=== PATIENT | female | born 1985 | race Caucasian/White ===

== ENCOUNTER 2018-01-14 07:16 | Emergency (ER) | payer BC, OTHER ==
--- NOTE | 2018-01-14 08:05 | ER ---
Nurse's Notes [facility] Name: Socorro Cook Age: 32 yrs Sex: Female : 1985 Arrival Date: 01/14/2018 Time: 07:20 Bed 16 Private MD: out of town, doctor Diagnosis: Right facial swelling;facial cellulitis Presentation: 01/14 07:32 Presenting complaint: Patient states: i have upper tooth cavities for weeks and i saw a dentist last Friday, placed me on antibiotics- clindamycin, due to swelling on R cheek and its getting worse, the swelling gets to my R eye; denies fever and chills, reports nausea;. Transition of care: patient was not received from another setting of care. Onset of symptoms was January 14, 2018. Initial Sepsis Screen: Does the patient meet any 2 criteria? Does the patient have a suspected source of infection? Yes:. Care prior to arrival: None. 07:32 Method Of Arrival: Ambulatory 07:32 Acuity: GEORGE 3 Triage Assessment: 07:36 General: Appears in no apparent distress. uncomfortable, Behavior is calm, cooperative, hj appropriate for age. Pain: Complains of pain in right cheek. 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 - Social history:: Smoking status: Patient/guardian denies using tobacco, Patient/guardian denies using alcohol. Screenin:36 Abuse screen: Denies threats or abuse. Denies injuries from another. Nutritional hj screening: No deficits noted. Tuberculosis screening: No symptoms or risk factors identified. Fall Risk None identified. Assessment: 07:38 General: Appears in no apparent distress. uncomfortable, Behavior is calm, cooperative, hj appropriate for age. Pain: Complains of pain in right cheek Pain currently is 7 out of 10 on a pain scale. Neuro: Level of Consciousness is awake, alert, obeys commands, Oriented to person, place, time, situation, Appropriate for age. Cardiovascular: Capillary refill < 3 seconds Patient's skin is warm and dry. Respiratory: Airway is patent Respiratory effort is even, unlabored, Respiratory pattern is regular, symmetrical. GI: No signs and/or symptoms were reported involving the gastrointestinal system. : No signs and/or symptoms were reported regarding the genitourinary system. EENT: No signs and/or symptoms were reported regarding the EENT system. EENT: Derm: No signs and/or symptoms reported regarding the dermatologic system. Musculoskeletal: Vital Signs: 07:37 BP 137 / 91; Pulse 86; Resp 18; Temp 97.6(TE); Pulse Ox 100% on R/A; Weight 104.33 kg; hj Height 5 ft. 6 in. (167.64 cm); Pain 7/10; 09:18 BP 135 / 89; Pulse 85; Resp 18; Pulse Ox 100% on R/A; hj 07:37 Body Mass Index 37.12 (104.33 kg, 167.64 cm) hj ED Course: 07:20 Patient arrived in ED. mr 07:20 out of town, doctor is Private Physician. mr 07:31 Hilton Laura, GAGE is Primary Nurse. hj 07:35 Triage completed. hj 07:35 Cesario Bird MD is Attending Physician. ps1 07:37 Arm band placed on right wrist. hj 07:37 Patient has correct armband on for positive identification. Bed in low position. Call hj light in reach. Side rails up X 1. Adult w/ patient. 07:58 Inserted saline lock: 22 gauge in left antecubital area, using aseptic technique. Blood hj collected. 09:17 No provider procedures requiring assistance completed. IV discontinued, intact, hj bleeding controlled, No redness/swelling at site. Pressure dressing applied. Administered Medications: 08:03 Drug: NS 0.9% 1000 ml Route: IV; Rate: 1 bolus; Site: left antecubital; hj 09:02 Follow up: IV Status: Completed infusion hj 08:03 Drug: Decadron - Dexamethasone 10 mg Route: IVP; Site: left antecubital; hj 09:02 Follow up: Response: No adverse reaction hj 09:02 Drug: Rocephin - (cefTRIAXone) 1 grams Route: IVPB; Infused Over: 30 mins; Site: left hj antecubital; 09:02 Follow up: IV Status: Completed infusion hj Outcome: 08:04 Discharge ordered by . ps1 09:18 Discharged to home ambulatory. hj 09:18 Condition: stable 09:18 Discharge instructions given to patient, Instructed on discharge instructions, follow up and referral plans. the need for admit, Demonstrated understanding of instructions, follow-up care, medications, Prescriptions given X 2. 09:20 Patient left the ED. betty Signatures: Oumou Solorzano Henry RN RN Cesario Mirza MD MD ps1 Corrections: (The following items were deleted from the chart) 07:35 07:31 Presenting complaint: betty hernández
--- NOTE | 2018-01-14 08:05 | EDPHYS ---
Physician Documentation [facility] Name: Socorro Cook Age: 32 yrs Sex: Female : 1985 Arrival Date: 01/14/2018 Time: 07:20 Bed 16 Private MD: out of town, doctor ED Physician Cesario Bird HPI: 01/14 07:58 This 32 yrs old Female presents to ER via Ambulatory with complaints of Mouth ps1 Swelling. 07:58 The patient presents with pain and swelling in the right maxillary/facial region s/p ps1 filled dental susan. Called dentist and on clindamycin x 2 days. Swelling is worse, pain rated as moderate. No FND. No extension into eye or pain with eye movements. No palpable abscess. No fever. 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 - Social history:: Smoking status: Patient/guardian denies using tobacco, Patient/guardian denies using alcohol. ROS: 07:58 Constitutional: Negative for fever, chills, and weight loss, Eyes: Negative for injury, ps1 pain, redness, and discharge. 07:58 Cardiovascular: Negative for chest pain, palpitations, and edema, Respiratory: Negative for shortness of breath, cough, wheezing, and pleuritic chest pain, Abdomen/GI: Negative for abdominal pain, nausea, vomiting, diarrhea, and constipation, Back: Negative for injury and pain, MS/Extremity: Negative for injury and deformity, Skin: Negative for injury, rash, and discoloration, Neuro: Negative for headache, weakness, numbness, tingling, and seizure, Psych: Negative for depression, anxiety, suicide ideation, homicidal ideation, and hallucinations. 07:58 ENT: Positive for Teeth pain facial swelling. Exam: 07:58 Constitutional: This is a well developed, well nourished patient who is awake, alert, ps1 and in no acute distress. 07:58 ENT: Nares patent. No nasal discharge, no septal abnormalities noted. Tympanic membranes are normal and external auditory canals are clear. Oropharynx with no redness, swelling, or masses, exudates, or evidence of obstruction, uvula midline. Mucous membranes moist. Neck: Trachea midline, no thyromegaly or masses palpated, and no cervical lymphadenopathy. Supple, full range of motion without nuchal rigidity, or vertebral point tenderness. No Meningismus. Chest/axilla: Normal chest wall appearance and motion. Nontender with no deformity. No lesions are appreciated. Cardiovascular: Regular rate and rhythm. No gallops, murmurs, or rubs. Normal PMI, no JVD. No pulse deficits. Respiratory: Lungs have equal breath sounds bilaterally, clear to auscultation and percussion. No rales, rhonchi or wheezes noted. No increased work of breathing, no retractions or nasal flaring. Abdomen/GI: Soft, non-tender, with normal bowel sounds. No distension or tympany. No guarding or rebound. No evidence of tenderness throughout. MS/ Extremity: Pulses equal, no cyanosis. Neurovascular intact. Full, normal range of motion. Neuro: Awake and alert, GCS 15, oriented to person, place, time, and situation. Cranial nerves II-XII grossly intact. Sensory grossly intact. Psych: Awake, alert, with orientation to person, place and time. Behavior, mood, and affect are within normal limits. 07:58 Head/face: Noted is swelling, that is mild, of the right cheek. Vital Signs: 07:37 BP 137 / 91; Pulse 86; Resp 18; Temp 97.6(TE); Pulse Ox 100% on R/A; Weight 104.33 kg; Height 5 ft. 6 in. (167.64 cm); Pain 7/10; 09:18 BP 135 / 89; Pulse 85; Resp 18; Pulse Ox 100% on R/A; hj 07:37 Body Mass Index 37.12 (104.33 kg, 167.64 cm) MDM: 07:58 Data reviewed: vital signs, nurses notes. ED course: pt already on clindamycin. Will ps1 give decadron and x1 rocephin. continue clindamycin and follow up with dentist. 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 Stable for discharge. . 08:04 Patient medically screened. ps1 Administered Medications: 08:03 Drug: NS 0.9% 1000 ml Route: IV; Rate: 1 bolus; Site: left antecubital; 09:02 Follow up: IV Status: Completed infusion hj 08:03 Drug: Decadron - Dexamethasone 10 mg Route: IVP; Site: left antecubital; 09: Follow up: Response: No adverse reaction 09: Drug: Rocephin - (cefTRIAXone) 1 grams Route: IVPB; Infused Over: 30 mins; Site: left hj antecubital; 09:02 Follow up: IV Status: Completed infusion Disposition: 01/14/18 08:04 Discharged to Home. Impression: Right facial swelling, facial cellulitis. - Condition is Stable. - Discharge Instructions: Cellulitis. - Prescriptions for Anaprox DS 550 mg Oral Tablet - take 1 tablet by ORAL route every 12 hours As needed; 20 tablet. Medrol (Landry) 4 mg Oral Tablets, Dose Pack - take 1 tablet by ORAL route as directed - follow package instructions; 1 packet. - Work release form, Medication Reconciliation Form, Thank You Letter, Antibiotic Education, Prescription Opioid Use form. - Follow up: Private Physician; When: As needed; Reason: Recheck today's complaints, Continuance of care, Re-evaluation by your physician. Follow up: Emergency Department; When: As needed; Reason: Fever > 102 F, Trouble breathing, Worsening of condition. - Problem is an ongoing problem. - Symptoms have worsened. Signatures: Hilton Laura RN RN Cesario Mirza MD MD ps1
[2018-01-14] MEDS ORDERED: DEXAMETHASONE 10 MG/ML VIAL ONE (08:06)
[2018-01-14] MEDS ORDERED: NA CHLORIDE 0.9% 1,000 ML ONE (08:07)
[2018-01-14] MEDS ORDERED: CEFTRIAXONE/SWI 1gm 1 GM/10 ML SYR ONE (08:56)
[2018-01-14 09:26] VITALS: TEMP 97.6; O2SAT 100
[2018-01-14 09:27] VITALS: BP 135/89
== END 2018-01-14 09:20 | disposition home or self-care (01) ==
LOC: ER 07:16
DX: L03.211 Cellulitis of face (principal); Z88.5 Allergy status to narcotic agent
CPT/HCPCS: 96361; 96374; 96375; 99284; J0696; J1100; J7030

== ENCOUNTER 2018-04-06 04:39 | Emergency (ER) | payer BC ==
[2018-04-06 05:40] LABS: Absolute Lymphocytes (CBC) 2.5 K/uL (0.7-4.9); Absolute Monocytes 0.5 K/uL (0.1-1.3); Absolute Neutrophil 5.3 K/uL (1.8-8.0); Basophils % 0.4 % (0-1.3); Eosinophils % 1.3 % (0-4.4); Hematocrit 39.3 % (36.0-45.0); Lymphocytes % 29.7 % (15.3-44.8); MCH 28.8 pg (27.0-35.0); MCV 83.7 fL (80-100); MPV 9.8 fL (7.6-11.3); Monocytes % 5.7 % (3.3-12.3)
[2018-04-06] MEDS ORDERED: NA CHLORIDE 0.9% 1,000 ML ONE (05:44)
[2018-04-06 06:00] LABS: ALT/SGPT 31 U/L (12-78); AST/SGOT 18 U/L (15-37); Albumin 3.6 g/dL (3.4-5.0); Alkaline Phosphatase 40 U/L (45-117); BUN Blood Urea Nitrogen 17 mg/dL (7-18); Bicarbonate 24 mmol/L (21-32); Bilirubin Direct 0.1 mg/dL (0-0.2); Bilirubin Total 0.7 mg/dL (0.2-1.0); Glucose Level 158 mg/dL (74-106); Lipase 137 U/L (73-393); Protein, Total 7.5 g/dL (6.4-8.2); Sodium Level 139 mmol/L (136-145)
[2018-04-06] MEDS ORDERED: KETOROLAC 30 MG/ML INJ ONE (06:52)
--- NOTE | 2018-04-06 07:13 | ER ---
Nurse's Notes [facility] Name: Socorro Cook Age: 32 yrs Sex: Female : 1985 Arrival Date: 04/06/2018 Time: 04:42 Bed 8 Private MD: Diagnosis: Abdominal tenderness;Fatty (change of) liver, not elsewhere classified Presentation: 04/06 04:54 Presenting complaint: Patient states: that for the past 2 days she has been having fc right side/flank/back pain along with nausea. Denies any urinary problems. No diarrhea. Last BM was 04/05/18. Transition of care: patient was not received from another setting of care. Onset of symptoms was April 04, 2018. Risk Assessment: Do you want to hurt yourself or someone else? Patient reports no desire to harm self or others. Initial Sepsis Screen: Does the patient meet any 2 criteria? No. Patient's initial sepsis screen is negative. Does the patient have a suspected source of infection? No. Patient's initial sepsis screen is negative. Care prior to arrival: None. 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 - Social history:: Smoking status: Patient/guardian denies using tobacco. - Ebola Screening: : Patient negative for fever greater than or equal to 101.5 degrees Fahrenheit, and additional compatible Ebola Virus Disease symptoms Patient denies exposure to infectious person Patient denies travel to an Ebola-affected area in the 21 days before illness onset. - Family history:: not pertinent. Screenin:57 Abuse screen: Denies threats or abuse. Nutritional screening: No deficits noted. fc Tuberculosis screening: No symptoms or risk factors identified. Fall Risk None identified. Assessment: 05:02 General: Appears in no apparent distress. comfortable, Behavior is calm, cooperative, aa1 appropriate for age. Pain: Complains of pain in posterior aspect of right lateral abdomen, anterior aspect of right lateral abdomen and right lower quadrant Pain began 1 day ago. Aggravated by breathing. Neuro: Level of Consciousness is awake, alert, obeys commands, Oriented to person, place, time, situation, Moves all extremities. Full function Gait is steady, Speech is normal. Cardiovascular: Heart tones S1 S2 present Rhythm is regular. Respiratory: Airway is patent Respiratory effort is even, unlabored, Respiratory pattern is regular, symmetrical. GI: Abdomen is obese, Bowel sounds present X 4 quads. Abd is soft X 4 quads Reports lower abdominal pain, nausea. : No signs and/or symptoms were reported regarding the genitourinary system. EENT: No signs and/or symptoms were reported regarding the EENT system. Derm: Skin is intact, is healthy with good turgor, Skin is pink, warm \T\ dry. Musculoskeletal: Circulation, motion, and sensation intact. Capillary refill < 3 seconds. 05:38 Reassessment: Patient appears in no apparent distress at this time. Patient and/or aa1 family updated on plan of care and expected duration. Pain level reassessed. Patient is alert, oriented x 3, equal unlabored respirations, skin warm/dry/pink. Awaiting lab and CT results. 07:04 Reassessment: Patient appears in no apparent distress at this time. Patient and/or aa1 family updated on plan of care and expected duration. Pain level reassessed. Patient is alert, oriented x 3, equal unlabored respirations, skin warm/dry/pink. Awaiting u/s. Vital Signs: 04:56 BP 146 / 78; Pulse 75; Resp 18; Temp 98.3(O); Pulse Ox 97% on R/A; Weight 104.33 kg fc (R); Height 5 ft. 6 in. (167.64 cm) (R); Pain 7/10; 05:39 BP 128 / 69; Pulse 75; Resp 16; Pulse Ox 99% on R/A; aa1 06:18 BP 117 / 79; Pulse 73; Resp 16; Pulse Ox 98% on R/A; aa1 07:21 BP 134 / 77; Pulse 79; Resp 16; Pulse Ox 99% on R/A; hb 04:56 Body Mass Index 37.12 (104.33 kg, 167.64 cm) ED Course: 04:42 Patient arrived in ED. al2 04:53 Justino Ji MD is Attending Physician. jose 04:55 Triage completed. fc 04:56 Arm band placed on Patient placed in an exam room, on a stretcher. fc 04:57 Patient has correct armband on for positive identification. Bed in low position. Call light in reach. Pulse ox on. NIBP on. 05:01 Laureen Dailey, RN is Primary Nurse. aa1 05:02 Initial lab(s) drawn, by me, sent to lab. Inserted saline lock: 20 gauge in right aa1 forearm, using aseptic technique. Blood collected. 05:[address] via wheelchair. kw1 05:18 CT Stone Protocol In Process Unspecified. EDMS 05:18 CT completed. Patient tolerated procedure well. Patient moved back from CT. kw1 06:43 Patient taken to ultrasound. olaf 07:06 Report given to Kallie Antonio RN. aa1 07:17 US Abdomen Limited In Process Unspecified. EDMS 07:23 No provider procedures requiring assistance completed. IV discontinued, intact, hb bleeding controlled, No redness/swelling at site. Pressure dressing applied. Administered Medications: 05:44 Drug: NS 0.9% 1000 ml Route: IV; Rate: 1 bolus; Site: right forearm; aa1 06:51 Drug: TORadol 30 mg Route: IVP; Site: right forearm; aa1 Outcome: 07:12 Discharge ordered by . jose 07:23 Discharged to home ambulatory. hb 07:23 Condition: stable 07:23 Discharge instructions given to patient, Instructed on discharge instructions, follow up and referral plans. medication usage, Demonstrated understanding of instructions, follow-up care, medications, Prescriptions given X 2. 07:24 Patient left the ED. hb Signatures: Dispatcher [employer] EDMS Laureen Dailey, RN RN aa1 Justino Ji MD MD cha Chretien, Felicia, RN RN fc Dupre, Jacques jd Baxter, Heather, RN RN Tami Vivas kw1 Steffi Marie2
--- NOTE | 2018-04-06 07:13 | EDPHYS ---
Physician Documentation [facility] Name: Socorro Cook Age: 32 yrs Sex: Female : 1985 Arrival Date: 04/06/2018 Time: 04:42 Bed 8 Private MD: ED Physician Justino Ji HPI: 04/06 05:12 This 32 yrs old Female presents to ER via Ambulatory with complaints of Flank jose Pain. 05:12 The patient complains of pain in the right mid back and right low back. The pain jose radiates to the right mid back and right low back. Onset: The symptoms/episode began/occurred 2 day(s) ago. Modifying factors: The symptoms are alleviated by nothing. Associated signs and symptoms: Pertinent positives: nausea. Severity of pain: At its worst the pain was moderate. The patient has not experienced similar symptoms in the past. 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 - Social history:: Smoking status: Patient/guardian denies using tobacco. - Ebola Screening: : Patient negative for fever greater than or equal to 101.5 degrees Fahrenheit, and additional compatible Ebola Virus Disease symptoms Patient denies exposure to infectious person Patient denies travel to an Ebola-affected area in the 21 days before illness onset. - Family history:: not pertinent. ROS: 05:12 Constitutional: Negative for fever, chills, and weight loss, Eyes: Negative for injury, jose pain, redness, and discharge, ENT: Negative for injury, pain, and discharge, Neck: Negative for injury, pain, and swelling, Cardiovascular: Negative for chest pain, palpitations, and edema, Respiratory: Negative for shortness of breath, cough, wheezing, and pleuritic chest pain, : Negative for injury, bleeding, discharge, and swelling, MS/Extremity: Negative for injury and deformity, Skin: Negative for injury, rash, and discoloration, Neuro: Negative for headache, weakness, numbness, tingling, and seizure, Psych: Negative for depression, anxiety, suicide ideation, homicidal ideation, and hallucinations, Allergy/Immunology: Negative for hives, rash, and allergies, Endocrine: Negative for neck swelling, polydipsia, polyuria, polyphagia, and marked weight changes, Hematologic/Lymphatic: Negative for swollen nodes, abnormal bleeding, and unusual bruising. 05:12 Abdomen/GI: Positive for abdominal pain, nausea. 05:12 Back: Positive for decreased range of motion, pain at rest, of the right mid back and right low back. Exam: 05:12 Constitutional: This is a well developed, well nourished patient who is awake, alert, jose and in no acute distress. Head/Face: Normocephalic, atraumatic. Eyes: Pupils equal round and reactive to light, extra-ocular motions intact. Lids and lashes normal. Conjunctiva and sclera are non-icteric and not injected. Cornea within normal limits. Periorbital areas with no swelling, redness, or edema. ENT: Nares patent. No nasal discharge, no septal abnormalities noted. Tympanic membranes are normal and external auditory canals are clear. Oropharynx with no redness, swelling, or masses, exudates, or evidence of obstruction, uvula midline. Mucous membranes moist. Neck: Trachea midline, no thyromegaly or masses palpated, and no cervical lymphadenopathy. Supple, full range of motion without nuchal rigidity, or vertebral point tenderness. No Meningismus. Chest/axilla: Normal chest wall appearance and motion. Nontender with no deformity. No lesions are appreciated. Cardiovascular: Regular rate and rhythm with a normal S1 and S2. No gallops, murmurs, or rubs. Normal PMI, no JVD. No pulse deficits. Respiratory: Lungs have equal breath sounds bilaterally, clear to auscultation and percussion. No rales, rhonchi or wheezes noted. No increased work of breathing, no retractions or nasal flaring. Skin: Warm, dry with normal turgor. Normal color with no rashes, no lesions, and no evidence of cellulitis. MS/ Extremity: Pulses equal, no cyanosis. Neurovascular intact. Full, normal range of motion. Neuro: Awake and alert, GCS 15, oriented to person, place, time, and situation. Cranial nerves II-XII grossly intact. Motor strength 5/5 in all extremities. Sensory grossly intact. Cerebellar exam normal. Normal gait. Psych: Awake, alert, with orientation to person, place and time. Behavior, mood, and affect are within normal limits. 05:12 Abdomen/GI: Inspection: abdomen appears normal, Bowel sounds: normal, Palpation: mild abdominal tenderness, Liver: no appreciated palpable abnormalities, Hernia: not appreciated. 06:29 Musculoskeletal/extremity: DVT Exam: No signs of deep vein thrombosis. no pain, no jose swelling, no tenderness, negative Homans' sign noted on exam, no appreciated bluish discoloration, no erythema, no increased warmth. 06:31 Musculoskeletal/extremity: ROM: no acute changes, intact in all extremities, jose Circulation is intact in all extremities. Pulses: are normal with no appreciated deficits, Sensation intact. Compartment Syndrome exam of affected extremity: is normal. Vital Signs: 04:56 BP 146 / 78; Pulse 75; Resp 18; Temp 98.3(O); Pulse Ox 97% on R/A; Weight 104.33 kg fc (R); Height 5 ft. 6 in. (167.64 cm) (R); Pain 7/10; 05:39 BP 128 / 69; Pulse 75; Resp 16; Pulse Ox 99% on R/A; aa1 06:18 BP 117 / 79; Pulse 73; Resp 16; Pulse Ox 98% on R/A; aa1 07:21 BP 134 / 77; Pulse 79; Resp 16; Pulse Ox 99% on R/A; hb 04:56 Body Mass Index 37.12 (104.33 kg, 167.64 cm) MDM: 04:53 Patient medically screened. [facility] 05:17 Data reviewed: vital signs, nurses notes, lab test result(s), radiologic studies, plain jose films. 04/06 04:54 Order name: Basic Metabolic Panel; Complete Time: 07:08 [facility] 04/06 04:54 Order name: CBC with Diff; Complete Time: 07: [facility] 04/06 04:54 Order name: Creatinine for Radiology; Complete Time: 07: [facility] 04/06 04:54 Order name: Hepatic Function; Complete Time: 07:08 [facility] 04/06 04:54 Order name: Lipase; Complete Time: 07:08 [facility] 04/06 04:54 Order name: Urine Microscopic Only [facility] 04/06 04:54 Order name: IV Saline Lock; Complete Time: 05:07 [facility] 04/06 04:54 Order name: Labs collected and sent; Complete Time: 05:07 [facility] 04/06 04:54 Order name: CT Stone Protocol [facility] 04/06 05:42 Order name: US Abdomen Limited [facility] 04/06 06:52 Order name: Urine Dipstick--Ancillary (enter results) [facility] 04/06 06:52 Order name: Urine --Ancillary (enter results) [facility] 04/06 04:54 Order name: Urine Dipstick-Ancillary (obtain specimen); Complete Time: 06:48 [facility] 04/06 04:54 Order name: Urine Test (obtain specimen); Complete Time: 06:48 [facility] Administered Medications: 05:44 Drug: NS 0.9% 1000 ml Route: IV; Rate: 1 bolus; Site: right forearm; aa1 06:51 Drug: TORadol 30 mg Route: IVP; Site: right forearm; aa1 Disposition: 04/06/18 07:12 Discharged to Home. Impression: Abdominal tenderness, Fatty (change of) liver, not elsewhere classified. - Condition is Stable. - Discharge Instructions: Abdominal Pain, Adult, Nausea and Vomiting, Abdominal Pain, Adult, [id number]. - Prescriptions for Bentyl 20 mg Oral Tablet - take 1 tablet by ORAL route every 6 hours As needed; 20 tablet. Pepcid 20 mg Oral Tablet - take 1 tablet by ORAL route every 12 hours for 10 days; 20 tablet. - Work release form, Medication Reconciliation Form, Thank You Letter, Antibiotic Education, Prescription Opioid Use form. - Follow up: Private Physician; When: 2 - 3 days; Reason: Recheck today's complaints, Continuance of care, Re-evaluation by your physician. - Problem is new. - Symptoms have improved. Signatures: Dispatcher [employer] EDMS Laureen Dailey RN RN aa1 Justino Ji MD MD cha Chretien, Felicia, RN RN fc Baxter, Heather, RN RN hb Corrections: (The following items were deleted from the chart) 07:24 07:12 04/06/2018 07:12 Discharged to Home. Impression: Abdominal tenderness; Fatty hb (change of) liver, not elsewhere classified. Condition is Stable. Forms are Medication Reconciliation Form, Thank You Letter, Antibiotic Education, Prescription Opioid Use. Follow up: Private Physician; When: 2 - 3 days; Reason: Recheck today's complaints, Continuance of care, Re-evaluation by your physician. Problem is new. Symptoms have improved. jose
[2018-04-06 07:28] VITALS: TEMP 98.3
[2018-04-06 07:31] LABS: Urine Blood 2+ (NEG); Urine Glucose NEGATIVE (NEG); Urine Protein NEGATIVE (NEG); Urine pH 5.5 (5.0-7.0)
[2018-04-06 07:32] VITALS: BP 134/77; O2SAT 99
--- NOTE | 2018-04-06 08:49 | RAD REPORT ---
EXAM DESCRIPTION: CT - Stone Protocol - 04/06/2018 6:46 am CLINICAL HISTORY: Abdominal pain. Right flank pain with nausea x2 days COMPARISON: 2012 TECHNIQUE: Computed axial tomography of the abdomen pelvis was obtained without oral or IV contrast. Lack of IV and oral contrast limits evaluation of solid organs, bowel, and vessels. Coronal reformat jamel images were obtained and reviewed. A preliminary report was generated by [employer] and reviewed prior to this dictation [address] scans are performed using dose optimization technique as appropriate and may include automated exposure control or mA/KV adjustment according to patient size. FINDINGS: A renal calculus is not seen. An ureteral calculus is not noted. A bladder calculus is not present. The liver is enlarged with diminished density compatible with fatty infiltration Spleen, pancreas and adrenals appear grossly normal There is no evidence of diverticulitis. The appendix appears normal A tampon is present within the vagina IMPRESSION: Negative for a genitourinary calculus Hepatomegaly with fatty infiltration
--- NOTE | 2018-04-06 09:11 | RAD REPORT ---
EXAM DESCRIPTION: US - Abdomen Exam Limited - 04/06/2018 7:17 am CLINICAL HISTORY: Abdominal pain. COMPARISON: 2016 FINDINGS: The gallbladder wall is not thickened. A gallstone is not seen. The biliary tree is normal caliber. IMPRESSION: Unremarkable gallbladder ultrasound.
[2018-04-06 10:17] LABS: Urine Bacteria <20 /HPF (<20); Urine RBC <5 /HPF (NONE SEEN)
[2018-04-06 10:18] LABS: Urine Culture Reflex Order NOT NEEDED
== END 2018-04-06 07:24 | disposition home or self-care (01) ==
LOC: ER 04:39
DX: K76.0 Fatty (change of) liver, not elsewhere classified (principal); F41.9 Anxiety disorder, unspecified; Z88.5 Allergy status to narcotic agent
CPT/HCPCS: 36415; 74176; 76377; 76705; 80048; 80076; 81003; 81015; 81025; 83690; 85025; 96374; 99284; J7030

== ENCOUNTER 2019-05-27 16:42 | Emergency (ER) | payer BC ==
[2019-05-27 17:17] LABS: Absolute Lymphocytes (CBC) 2.1 K/uL (0.7-4.9); Basophils % 0.5 % (0-1.3); Hematocrit 40.4 % (36.0-45.0); Lymphocytes % 26.1 % (15.3-44.8); MPV 9.7 fL (7.6-11.3); RBC Red Blood Cell Count 4.92 M/uL (3.86-4.86)
[2019-05-27 17:19] LABS: Urine Blood NEGATIVE (NEG); Urine Glucose NEGATIVE (NEG); Urine Protein NEGATIVE (NEG); Urine Specific Gravity 1.005 (1.005-1.030); Urine pH 6.5 (5.0-7.0)
[2019-05-27 17:34] LABS: Albumin 4.1 g/dL (3.4-5.0); Bilirubin Direct 0.1 mg/dL (0-0.2); Bilirubin Total 0.8 mg/dL (0.2-1.0); Potassium 4.1 mmol/L (3.5-5.1)
[2019-05-27] MEDS ORDERED: NA CHLORIDE 0.9% 1,000 ML ONE (18:11)
[2019-05-27] MEDS ORDERED: ONDANSETRON 4 MG/2 ML VIAL ONE (18:11)
[2019-05-27] MEDS ORDERED: MORPHINE 4 MG/ML SYR ONE (18:11)
[2019-05-27] MEDS ORDERED: FENTANYL CITR 100 MCG/2 ML ONE (18:40)
--- NOTE | 2019-05-27 19:21 | RAD REPORT ---
EXAM DESCRIPTION: CT - Stone Protocol - 05/27/2019 7:01 pm CLINICAL HISTORY: Back pain, right lower quadrant pain, dysuria COMPARISON: CT April 06, 2018 TECHNIQUE: Axial 5 mm thick images were obtained without oral or IV contrast. The [id number] span s the entirety of the system including uppermost abdomen and lung bases. All CT scans are performed using dose optimization technique as appropriate and may include automated exposure control or mA/KV adjustment according to patient size. FINDINGS: No hydronephrosis is present and no obstructing ureteral calculi. No suspicious renal mass es. Isodense masses and pyelonephritis are not excluded on a stone protocol CT scan. No urinary bladd er suspicious finding. No significant adrenal finding. Uterus is prominent stable. No ovarian or adne xal suspicious finding. Liver shows fatty infiltration. No focal liver lesion identified. Spleen and pancreas show no suspici ous findings. No gallbladder or biliary tree abnormality identified. No suspicious bowel findings. No acute GI finding. No hernia, mass or bulky lymphadenopathy noted. No free air, free fluid or inflammatory stranding. No significant bony abnormality. IMPRESSION: No hydronephrosis, obstructing calculus or acute finding. Isodense masses and pyelonephritis are not excluded on stone protocol technique. Fatty infiltration of the liver.
[2019-05-27] MEDS ORDERED: KETOROLAC 30 MG/ML INJ ONE (21:28)
--- NOTE | 2019-05-27 22:29 | ER ---
Nurse's Notes [facility] Name: Socorro Cook Age: 33 yrs Sex: Female : 1985 Arrival Date: 05/27/2019 Time: 16:45 Bed 4 Private MD: Diagnosis: Pain localized to upper abdomen-biliary colic Presentation: 05/27 16:49 Presenting complaint: Patient states: RLQ pain that started this morning, but now the aj1 pain radiates to her back. Also reports nausea. Denies V/D. Reports urinary frequency. Transition of care: patient was not received from another setting of care. Onset of symptoms was May 27, 2019. Risk Assessment: Do you want to hurt yourself or someone else? Patient reports no desire to harm self or others. Initial Sepsis Screen: Does the patient meet any 2 criteria? No. Patient's initial sepsis screen is negative. Does the patient have a suspected source of infection? No. Patient's initial sepsis screen is negative. Care prior to arrival: None. 16:49 Method Of Arrival: Ambulatory aj 16:49 Acuity: GEORGE 3 aj1 Triage Assessment: 16:50 General: Appears in no apparent distress. uncomfortable, Behavior is calm, cooperative, aj1 appropriate for age. Pain: Pain currently is 7 out of 10 on a pain scale. Neuro: Level of Consciousness is awake, alert, obeys commands. Cardiovascular: Patient's skin is warm and dry. Respiratory: Airway is patent Respiratory effort is even, unlabored, Respiratory pattern is regular, symmetrical. 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 - Social history:: Smoking status: Patient/guardian denies using tobacco. - Ebola Screening: : Patient denies travel to an Ebola-affected area in the 21 days before illness onset. Screenin:00 Abuse screen: Denies threats or abuse. Denies injuries from another. Nutritional sv screening: No deficits noted. Tuberculosis screening: No symptoms or risk factors identified. Fall Risk None identified. Assessment: 17:00 General: Appears in no apparent distress. uncomfortable, well developed, Behavior is sv calm, cooperative, appropriate for age. Pain: Complains of pain in posterior aspect of right lateral abdomen, anterior aspect of right lateral abdomen and right lower quadrant. Neuro: Level of Consciousness is awake, alert, obeys commands, Oriented to person, place, time, situation, Moves all extremities. Full function Gait is steady. Respiratory: Respiratory effort is even, unlabored, Respiratory pattern is regular, symmetrical. GI: Reports nausea. Derm: Skin is pink, warm \T\ dry. 18:19 Reassessment: Patient appears in no apparent distress at this time. No changes from sv previously documented assessment. Patient and/or family updated on plan of care and expected duration. Pain level reassessed. Patient is alert, oriented x 3, equal unlabored respirations, skin warm/dry/pink. 18:43 Reassessment: Patient appears in no apparent distress at this time. No changes from sv previously documented assessment. Patient and/or family updated on plan of care and expected duration. Pain level reassessed. Patient is alert, oriented x 3, equal unlabored respirations, skin warm/dry/pink. 19:30 Neuro: Level of Consciousness is awake, alert, obeys commands, Oriented to person, bb place, time, situation. Cardiovascular: Capillary refill < 3 seconds Patient's skin is warm and dry. Respiratory: Respiratory effort is even, unlabored, Respiratory pattern is regular. GI: Abdomen is non-distended, Reports upper abdominal pain. Derm: Skin is pink, warm \T\ dry. Musculoskeletal: Circulation, motion, and sensation intact. 21:09 Reassessment: Patient is alert, oriented x 3, equal unlabored respirations, skin bb warm/dry/pink. pt is awaiting results of CT scan Dr Pitts notified. 21:38 Reassessment: Patient is alert, oriented x 3, equal unlabored respirations, skin bb warm/dry/pink. IV site intact, patent, no erythema or edema noted, family at bedside awaiting disposition. 22:03 Reassessment: pt states pain has improved now 2/ Dr Pitts notified pt to be bb discharged home and follow-up with PCP. 22:27 Reassessment: Patient is alert, oriented x 3, equal unlabored respirations, skin bb warm/dry/pink. pt verbalized understanding of and agrees to plan of care discharge instructions given pt ambulated with steady gait to exit accompanied by spouse. Vital Signs: 16:50 BP 152 / 95; Pulse 80; Resp 18; Temp 97.5; Pulse Ox 97% on R/A; Weight 97.52 kg (R); aj1 Height 5 ft. 6 in. (167.64 cm) (R); 17:23 BP 127 / 81; Pulse 85; Resp 18; Pulse Ox 97% on R/A; jb1 18:19 BP 103 / 58; Pulse 84; Resp 16; Pulse Ox 99% ; sv 18:31 BP 119 / 80; Pulse 82; Resp 18; Pulse Ox 99% ; sv 19:30 BP 129 / 74; Pulse 69; Resp 16 S; Temp 98.1(O); Pulse Ox 98% on R/A; Pain 4/10; bb 21:08 BP 126 / 78; Pulse 70; Resp 16; Pulse Ox 97% on R/A; bb 22:03 BP 121 / 71; Pulse 80; Resp 16 S; Pulse Ox 99% on R/A; Pain 2/10; bb 22:28 Temp 98.1(O); bb 16:50 Body Mass Index 34.70 (97.52 kg, 167.64 cm) aj1 ED Course: 16:45 Patient arrived in ED. mr 16:50 Triage completed. aj1 16:50 Arm band placed on Patient placed in an exam room. aj1 16:53 Imtiaz Falk MD is Attending Physician. kdr 16:55 Augustina Estevez, GAGE is Primary Nurse. sv 17:00 Patient has correct armband on for positive identification. Bed in low position. Adult sv w/ patient. Door closed. Head of bed elevated. 17:00 Initial lab(s) drawn, by me, sent to lab. Inserted saline lock: 20 gauge in left sv antecubital area, using aseptic technique. Blood collected. Flushed left antecubital with 5 ml normal saline. 17:42 Admitting physician to see patient. hb 17:50 Radiology exam delayed due to test not completed at this time. vm2 18:18 Radiology exam delayed due to test not completed at this time. vm2 18:26 Test, Serum Sent. sv 18:26 Basic Metabolic Panel Sent. sv 18:26 CBC with Diff Sent. sv 18:26 Creatinine for Radiology Sent. sv 18:26 Hepatic Function Sent. sv 18:26 Lipase Sent. sv 18:[address] via wheelchair. sv 19:07 Report given to Linda ALMONTE. sv 19:09 Primary Nurse role handed off by Augustina Estevez RN sv 19:24 Attending Physician role handed off by Imtiaz Falk MD gs 19:24 Wei Pitts MD is Attending Physician. gs 19:30 IV is patent, is intact. Patient maintains SpO2 saturation greater than 95% on room air.bb 20:03 Linda Mcconnell RN is Primary Nurse. bb 22:19 Hilton Stiles MD is Referral Physician. gs 22:28 No provider procedures requiring assistance completed. IV discontinued, intact, bb bleeding controlled, No redness/swelling at site. Pressure dressing applied. Administered Medications: 18:18 Drug: Zofran 4 mg Route: IVP; Site: left antecubital; ss 18:43 Follow up: Response: No adverse reaction sv 18:20 Drug: NS 0.9% 1000 ml Route: IV; Rate: 1 bolus; Site: left antecubital; ss 19:30 Follow up: IV Status: Completed infusion; IV Intake: 1000ml bb 18:20 Drug: morphine 4 mg Route: IVP; Site: left antecubital; ss 18:43 Follow up: Response: No adverse reaction; No change in condition; RASS: Restless (+1) sv 18:43 Drug: fentaNYL (PF) 25 mcg {Note: RASS 1.} Route: IVP; Site: left antecubital; sv 20:05 Follow up: Response: No adverse reaction; Pain is decreased bb 21:37 Drug: TORadol - Ketorolac 15 mg Route: IVP; Site: left antecubital; bb 22:29 Follow up: Response: Pain is decreased bb Intake: 19:30 IV: 1000ml; Total: 1000ml. bb Outcome: 22:20 Discharge ordered by . gs 22:28 Discharged to home ambulatory, with family. bb 22:28 Condition: stable 22:28 Discharge instructions given to patient, Instructed on discharge instructions, follow up and referral plans. medication usage, Demonstrated understanding of instructions, follow-up care, medications. 22:29 Patient left the ED. bb Signatures: Crispin Dong jb1 Elisabeth Hernandez RN RN aj1 Verde, Stephanie, RN RN sv Rittger, Kevin, MD MD [facility] Adia Solorzano mr Enedina, GAGE Mckeon RN, Shelby, RN RN ss Baxter, Heather, RN RN Elana Chairez [facility] Wei Pitts MD MD
--- NOTE | 2019-05-27 22:32 | EDPHYS ---
Physician Documentation [facility] Name: Socorro Cook Age: 33 yrs Sex: Female : 1985 Arrival Date: 05/27/2019 Time: 16:45 Bed 4 Private MD: ED Physician Wei Pitts HPI: 05/27 18:54 This 33 yrs old Female presents to ER via Ambulatory with complaints of Flank kdr Pain. 18:54 The patient presents with abdominal pain right lower quadrant. Onset: The kdr symptoms/episode began/occurred this morning. The symptoms radiate to the right flank. Associated signs and symptoms: Pertinent positives: nausea and vomiting, Pertinent negatives: blood in stools, chest pain, constipation, diarrhea, dysuria, fever. The symptoms are described as achy, crampy, dull, sharp, shooting, waxing/waning. Modifying factors: The symptoms are alleviated by remaining still, Sitting. Severity of pain: At its worst the pain was moderate severe in the emergency department the pain is unchanged. The patient has not experienced similar symptoms in the past. The patient has not recently seen a physician. 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 - Social history:: Smoking status: Patient/guardian denies using tobacco. - Ebola Screening: : Patient denies travel to an Ebola-affected area in the 21 days before illness onset. ROS: 18:54 Constitutional: Negative for fever, chills, and weight loss, Eyes: Negative for injury, kdr pain, redness, and discharge, ENT: Negative for injury, pain, and discharge, Neck: Negative for injury, pain, and swelling, Cardiovascular: Negative for chest pain, palpitations, and edema, Respiratory: Negative for shortness of breath, cough, wheezing, and pleuritic chest pain, Back: Negative for injury and pain, : Negative for injury, bleeding, discharge, and swelling, MS/Extremity: Negative for injury and deformity, Skin: Negative for injury, rash, and discoloration, Neuro: Negative for headache, weakness, numbness, tingling, and seizure activity. Psych: Negative for depression, anxiety, suicide ideation, homicidal ideation, and hallucinations, Allergy/Immunology: Negative for hives, rash, and allergies, Endocrine: Negative for neck swelling, polydipsia, polyuria, polyphagia, and marked weight changes, Hematologic/Lymphatic: Negative for swollen nodes, abnormal bleeding, and unusual bruising. 18:54 Abdomen/GI: Positive for abdominal pain, nausea and vomiting, Negative for diarrhea, constipation, abdominal cramps, abdominal distension, anorexia, dysphagia, hematemesis, black/tarry stool, rectal pain, rectal bleeding, bowel incontinence, flatulence. Exam: 18:54 Constitutional: This is a well developed, well nourished patient who is awake, alert, kdr and in no acute distress. Head/Face: Normocephalic, atraumatic. Eyes: Pupils equal round and reactive to light, extra-ocular motions intact. Lids and lashes normal. Conjunctiva and sclera are non-icteric and not injected. Cornea within normal limits. Periorbital areas with no swelling, redness, or edema. Neck: Trachea midline, no thyromegaly or masses palpated, and no cervical lymphadenopathy. Supple, full range of motion without nuchal rigidity, or vertebral point tenderness. No Meningismus. Chest/axilla: Normal chest wall appearance and motion. Nontender with no deformity. No lesions are appreciated. Cardiovascular: Regular rate and rhythm with a normal S1 and S2. No gallops, murmurs, or rubs. Normal PMI, no JVD. No pulse deficits. Respiratory: Lungs have equal breath sounds bilaterally, clear to auscultation and percussion. No rales, rhonchi or wheezes noted. No increased work of breathing, no retractions or nasal flaring. Back: No spinal tenderness. No costovertebral tenderness. Full range of motion. Skin: Warm, dry with normal turgor. Normal color with no rashes, no lesions, and no evidence of cellulitis. Neuro: Awake and alert, GCS 15, oriented to person, place, time, and situation. Cranial nerves II-XII grossly intact. Motor strength 5/5 in all extremities. Sensory grossly intact. Cerebellar exam normal. Normal gait. Psych: Awake, alert, with orientation to person, place and time. Behavior, mood, and affect are within normal limits. 18:54 Abdomen/GI: Inspection: abdomen appears normal, obese Bowel sounds: active, diminished, in all quadrants, Palpation: soft, mild abdominal tenderness, in the right upper quadrant, mass, is not appreciated, rebound tenderness, is not appreciated, voluntary guarding, is not appreciated, no appreciated organomegaly. Vital Signs: 16:50 BP 152 / 95; Pulse 80; Resp 18; Temp 97.5; Pulse Ox 97% on R/A; Weight 97.52 kg (R); aj1 Height 5 ft. 6 in. (167.64 cm) (R); 17:23 BP 127 / 81; Pulse 85; Resp 18; Pulse Ox 97% on R/A; jb1 18:19 BP 103 / 58; Pulse 84; Resp 16; Pulse Ox 99% ; sv 18:31 BP 119 / 80; Pulse 82; Resp 18; Pulse Ox 99% ; sv 19:30 BP 129 / 74; Pulse 69; Resp 16 S; Temp 98.1(O); Pulse Ox 98% on R/A; Pain 4/10; bb 21:08 BP 126 / 78; Pulse 70; Resp 16; Pulse Ox 97% on R/A; bb 22:03 BP 121 / 71; Pulse 80; Resp 16 S; Pulse Ox 99% on R/A; Pain 2/10; bb 22:28 Temp 98.1(O); bb 16:50 Body Mass Index 34.70 (97.52 kg, 167.64 cm) aj1 MDM: 19:24 Patient medically screened. gs 22:19 Data reviewed: vital signs, nurses notes, lab test result(s), radiologic studies. Data gs reviewed: old medical records. Counseling: I had a detailed discussion with the patient and/or guardian regarding: the historical points, exam findings, and any diagnostic results supporting the discharge/admit diagnosis, lab results, radiology results, the need for outpatient follow up, a general surgeon. Response to treatment: the patient's symptoms have resolved after treatment, the patient's condition has returned to base line, and as a result, I will discharge patient. 05/27 16:54 Order name: Basic Metabolic Panel kdr 05/27 16:54 Order name: CBC with Diff kdr 05/27 16:54 Order name: Creatinine for Radiology kdr 05/27 16:54 Order name: Hepatic Function kdr 05/27 16:54 Order name: Lipase kdr 05/27 18:12 Order name: Test, Serum hb 05/27 17:46 Order name: CT Stone Protocol kdr 05/27 18:30 Order name: Basic Metabolic Panel; Complete Time: 21:03 EDMS 05/27 18:30 Order name: Liver (Hepatic) Function; Complete Time: 21:03 EDMS 05/27 18:30 Order name: Lipase; Complete Time: 21:03 EDMS 05/27 18:30 Order name: CBC with Automated Diff; Complete Time: 21:03 EDMS 05/27 18:31 Order name: Creatinine (Radiology Only); Complete Time: 21:03 EDMS 05/27 18:31 Order name: Urine Dipstick-Ancillary; Complete Time: 21:03 EDMS 05/27 18:45 Order name: Test Serum, Qualitat; Complete Time: 21:03 EDMS 05/27 16:54 Order name: IV Saline Lock; Complete Time: 17:12 kdr 05/27 16:54 Order name: Labs collected and sent; Complete Time: 17:12 kdr Administered Medications: 18:18 Drug: Zofran 4 mg Route: IVP; Site: left antecubital; ss 18:43 Follow up: Response: No adverse reaction sv 18:20 Drug: NS 0.9% 1000 ml Route: IV; Rate: 1 bolus; Site: left antecubital; ss 19:30 Follow up: IV Status: Completed infusion; IV Intake: 1000ml bb 18:20 Drug: morphine 4 mg Route: IVP; Site: left antecubital; ss 18:43 Follow up: Response: No adverse reaction; No change in condition; RASS: Restless (+1) sv 18:43 Drug: fentaNYL (PF) 25 mcg {Note: RASS 1.} Route: IVP; Site: left antecubital; sv 20:05 Follow up: Response: No adverse reaction; Pain is decreased bb 21:37 Drug: TORadol - Ketorolac 15 mg Route: IVP; Site: left antecubital; bb 22:29 Follow up: Response: Pain is decreased bb Disposition: 05/27/19 22:20 Discharged to Home. Impression: Pain localized to upper abdomen - biliary colic. - Condition is Stable. - Discharge Instructions: Abdominal Pain, Adult. - Medication Reconciliation Form, Thank You Letter, Antibiotic Education, Prescription Opioid Use form. - Follow up: Hilton Stiles MD; When: 2 - 3 days; Reason: Re-evaluation by your physician. Signatures: Dispatcher [employer] EDMS Elisabeth Hernandez RN RN aj1 Augustina Estevez RN RN sv Rittger, Kevin, MD MD [facility] Linda Mcconnell RN RN bb Smirch, Shelby, RN RN ss Wei Pitts MD MD gs Corrections: (The following items were deleted from the chart) 22:29 22:20 05/27/2019 22:20 Discharged to Home. Impression: Pain localized to upper abdomen bb - biliary colic. Condition is Stable. Forms are Medication Reconciliation Form, Thank You Letter, Antibiotic Education, Prescription Opioid Use. Follow up: Hilton Stiles; When: 2 - 3 days; Reason: Re-evaluation by your physician. gs
[2019-05-28 01:11] VITALS: TEMP 98.1
[2019-05-28 01:13] VITALS: BP 121/71; O2SAT 99
== END 2019-05-27 22:29 | disposition home or self-care (01) ==
LOC: ER 16:42
DX: K80.50 Calculus of bile duct without cholangitis or cholecystitis without obstruction (principal); E11.9 Type 2 diabetes mellitus without complications; F41.8 Other specified anxiety disorders; Z88.6 Allergy status to analgesic agent
CPT/HCPCS: 96361; 85025; 80048; 36415; 84703; 80076; 81003; 83690; 76377; 74176; 96375; 96374; 99285; J3010; J7030; J2405